=== PATIENT | female | born 2000 | race Caucasian/White ===

== ENCOUNTER 2022-11-24 10:00 | Outpatient (RCR) | payer MEDICARE, MEDICAID, SELFPAY ==
--- NOTE | 2022-09-29 13:05 | HP.PTEVAL_ITS ---
Patient's Visit Information YESENIA MEYERS is a 22 year old F referred to Physical Therapy by Dora Vidal DO with a diagnosis of SCOLIOSIS, ANKLE PAIN, WIDE STANCE. Date of Evaluation: 09/29/22 Physical Therapist: Nataly Escalona PT, Cert MDT - Visit Plan Frequency: 2x /Week Duration: 4-6 Weeks Plan: *CHECK AUTH: RECORD # OF VISITS APPROVED AND EXPIRATION DATE. CHECK CODES APPROVED WITH POC*. AQUATIC THERAPY FOR GAIT TRAINING, STAIR TRAINING, CORE STRENGTHEING AND LE STRETCHING. - Subjective Work/Leisure: PATIENT LIVES WITH HER MOM IN AN [employer]. DAYHAB AT [employer] 3 DAYS A WEEK X ABOUT 6 HRS A DAY. 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 Present symptoms: I WALK LIKE A DUCK. PATIENT DENIES ANY SIGNIFICANT PAIN. SHE REPORTS VERY OCCASSIONAL BACK PAIN AND DENIES LE PAIN INCLUDING ANKLE PAIN. R ANKLE GAVE OUT A FEW WEEKS AGO - DIDN'T FALL - HURT FOR A FEW DAYS BUT BACK TO NORMAL NOW. Present since: CHRONIC. Is it getting better, worse or staying the same: STAYING THE SAME OR GETTING WORSE. Previous history/Previous treatment: ANKLE BRACES WHEN YOUNGER. AQUATIC THERAPY. Gait: NO FALLS. Bowel or Bladder Dysfunction: NORMAL. Imaging: NO. OTHER: PATIENTS [facility] (home personal care provider hired by the [facility]) CUSTOMER ASSOCIATE ROMULO IS WITH PATIENT TODAY AND HELPFUL WITH PATIENTS HISTORY. Allyson helps Yesenia 15 hours a week with ADL and Community Activities and Medical cameron'ts. - Objective Sitting/Standing Posture: SCOLIOSIS. Active Correction of posture: NE. Other Observations: INDEP TRANSFERS. HANDS ON LEGS TO TRANSFER SIT TO STAND. FOLLOWS COMMANDS WELL. PLEASANT AND COOPERATIVE TO WORK WITH. INDEP GAIT WITHOUT ANY ASSISTIVE DEVICES AND NO LOB BUT EXTREME TOEING OUT AND SLOW CADANCE - SEE TUG TIME. NO ARM SWING - HOLDS HANDS AT ABDOMEN. Sensory deficit: MADINA LE LIGHT TOUCH SENSATION GROSSLY INTACT AND SYMMETRICAL. ROM deficit: TIGHT MADINA HIP EXTERNAL ROTATORS AND HIP FLEXORS. Motor deficit: MADINA LE STRENGTH GROSSLY 5/5 WITH MMT'ING. Dural Signs: NEGATIVE MADINA LE'S. Lumbar mvmt loss: flex - NIL. ext - MOD. R SG - MOD. L SG - MOD. Core strength: POOR. Palpation: NO ACUTE BACK TENDERNESS - Balance/Special Test Scores Lower Extremity Functional Score: 63 TUG Test Time Seconds: 20.94 30 Second Chair Rise Test Seconds: 8 - Goals Goal 1:: INDEP AND SAFE GAIT ON LEVEL SURFACES AND UP AND DOWN STEPS Goal Time Frame: 4-6 Weeks Goal 2:: INDEP HEP Goal Time Frame: 4-6 Weeks - Anticipated Interventions Patient/Client Instruction: Educate patient on: Condition, Plan of Care, Risk Factors For the Purpose of:: To improve self management Therapeutic Exercise to Include: Strength training, Balance training, Coordination, Postural training, Flexibilty training, Gait and locomotor training, Neuromotor development, In an aquatic setting, Dynamic Lumbar Stabilization For the Purpose of:: To increase ROM, To improve muscle performance and motor function, To increase tolerance to activity/condition/position, To improve ability of physical actions for home/community/work/leisure, To improve gait and locomotor functions Thank you for the opportunity to evaluate your patient. For Medicare and Medicare HMO plans, please review the plan of care and approve it. It will need to be FAXED BACK to us at [phone] for Medicare purposes. For Medicare only, by signing this I certify the plan of care. Please let me know if there are questions or concerns regarding this plan of care. Physician Signature: Date:
--- NOTE | 2022-10-07 08:43 | HP.OTEVAL_ITS ---
Patient's Visit Information YESENIA MEYERS is a 22 year old F, referred to Occupational Therapy by Dora Vidal DO, with a diagnosis of Scoliosis, ankle pain, wide stance. Date of Evaluation: 10/07/22 Occupational Therapist: Meredith Joyner, CASSI/Roxy, CHT - Subjective This 22 year old female was seen for OT pretty with dx of Scoliosis, ankle pain and wide stance. PATIENT LIVES WITH HER MOM IN AN [place] DAYHAB AT [facility] 3 DAYS A WEEK X ABOUT 6 HRS A DAY. 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 Present symptoms: I WALK LIKE A DUCK. AQUATIC THERAPY. Gait: NO FALLS. Bowel or Bladder Dysfunction: NORMAL. Imaging: NO. OTHER: PATIENTS [facility] (home personal care provider hired by the [facility]) SOLO TRUCK DRIVER KATLIN IS WITH PATIENT TODAY AND HELPFUL WITH PATIENTS HISTORY. Allyson helps Yesenia 15 hours a week with ADL and Community Activities and Medical cameron'ts. Katlin states she was told OT could get her ankle braces. - Rehabilitation General Assessment: This therapist pulled DPT Brenda Adams to consult on the ank le brace as caregiver indicated possible need. After discussion with DPT and her clinical knowledge the wide stance is more from hip rotation vs ankles. And pt can ambulate with toes forward with verbal cues. pt was able to walk with toes forward and stand with toes forward- it was recommended she cont with her PT to strengthen legs- and use visual foot cues on floor at work and verbal cues when walking. Pt was able to ambulate out of dept. 300 feet with toes forward. note was written for workshop to assist in giving pt cues visual and verbal and given to her caregiver Katlin. - Visit Plan General Plan: pt to continue with her scheduled PT sessions. No skilled OT services needed at this time. TEXT: Thank you for the opportunity to evaluate your patient. For Medicare and Medicare HMO plans, please review the plan of care and approve it. It will need to be FAXED BACK to us at [phone] for Medicare purposes. Please let me know if there are questions or concerns regarding this plan of care. Physician Signature: Date:
--- NOTE | 2022-11-24 10:39 | HP.PTDCSUM ---
It has been my pleasure to treat SILVIA MEYERS referred by Dora Vidal DO, with the diagnosis of SCOLIOSIS, ANKLE PAIN, WIDE STANCE for a total of 11 visit(s). Discharge Date: 11/24/22 Please see the following information for a summary of their discharge status. Subjective: PATIENT AND JOURNEYMAN WIREMAN REPORT SHE IS DOING A LOT BETTER. NO FALLS SINCE STARTING PT. PATIENT REPORTS HER BOWLING (SPECIAL OLYMPICS) HAS IMPROVED TOO. PATIENTS JOURNEYMAN WIREMAN IS A LAUNDRY OPERATOR AND THEY ARE GOING TO GO TO THE [facility] 2 TIMES A WEEK TO WORK ON SWIMMING AND WATER EX. ALSO DOING HEP. % Improvement: 70 Objective/Function: PATIENT WAS SEEN TODAY FOR RE-ASSESSMENT OF PROGRESS TOWARD THE SET PT GOALS AND THE NEED FOR FURTHER PHYSICAL THERAPY VS READINESS FOR DISCHARGE. PATIENT HAS IMPROVED SIGNIFICANTLY WITH PT AND IS APPROPRIATE FOR DISCHARGE TODAY. FURTHER INSTRUCTION GIVEN IN APPROPRIATE ARM SWIM TODAY WITH WALKING AND PATIENT DID REALLY WELL BUT WILL NEED TO WORK ON THIS WITH THE HELP OF HER CARE GIVEN WHO WAS PRESENT THROUGHOUT SESSION. JOURNEYMAN WIREMAN COMMUNICATES A GOOD UNDERSTANDING. UPON EXAM TODAY: INDEP TRANSFERS WITHOUT UE ASSIST. FOLLOWS COMMANDS WELL. PLEASANT AND COOPERATIVE TO WORK WITH. INDEP GAIT WITHOUT ANY ASSISTIVE DEVICES AND NO LOB BUT EXTREME TOEING OUT CONTINUES. CADANCE HAS IMPROVED - SEE TUG TIME. Sensory deficit: MADINA LE LIGHT TOUCH SENSATION GROSSLY INTACT AND SYMMETRICAL. ROM deficit: TIGHT MADINA HIP EXTERNAL ROTATORS AND HIP FLEXORS. Motor deficit: MADINA LE STRENGTH GROSSLY 5/5 WITH MMT'ING. Dural Signs: NEGATIVE MADINA LE'S. Lumbar mvmt loss: flex - NIL. ext - MOD. R SG - MIN. L SG - MIN. Core strength: POOR. Palpation: NO ACUTE BACK TENDERNESS. [ End ] Goal 1:: INDEP AND SAFE GAIT ON LEVEL SURFACES AND UP AND DOWN STEPS Goal Progress: Goal Met Goal 2:: INDEP HEP Goal Progress: Goal Met Plan: D/C. PATIENT AND JOURNEYMAN WIREMAN AGREEABLE. If there are questions or concerns regarding this patient's physical therapy, please feel free to call me at [phone]. Thank you for the referral of this patient. Sincerely, Nataly Escalona, PT, Cert MDT Balance/Gait/Functional tests - Balance/Special Test Scores Lower Extremity Functional Score: 64 TUG Test Time Seconds: 9.98 Tug Test: <10 sec.=free mobile 30 Second Chair Rise Test Seconds: 8
== END 2022-11-24 12:34 | disposition home or self-care (01) ==
LOC: PT 10:00
PROVIDERS: PCP Family Medicine; Referring Provider Family Medicine; Visit Provider Family Medicine
DX: M41.9 Scoliosis, unspecified (principal); M25.579 Pain in unspecified ankle and joints of unspecified foot
CPT/HCPCS: 97113; 97162; 97164; 97166

== ENCOUNTER → 2023-09-23 | Outpatient (CLI) | payer MEDICARE, MEDICAID, SELFPAY ==
[2023-09-23 12:05] LABS: Absolute Lymphocyte Count 3.17 X10^3/uL (0.83-4.51); Absolute Neutrophil Count 3.4 X10^3/uL (2.0-7.7); Basophil# 0.06 X10^3/uL; Basophil% 0.8 % (0-1); Eosinophil# 0.19 X10^3/uL; Eosinophils% 2.5 % (0-5); Hematocrit 44.3 % (37-47); Hemoglobin 14.3 g/dL (12.0-15.0); Lymphocyte # 3.17 X10^3/ul (0.83-4.51); Lymphocyte % 42.4 % (19-41); Mean Corp Hgb Conc 32.3 g/dL (32-36); Mean Corpuscular Hgb 29.7 pg (27.0-32.0); Mean Corpuscular Volume 92.1 fL (81-99); Mean Platelet Vol. 10.3 fl (6.2-12.0); Monocyte# 0.64 X10^3/uL; Monocyte% 8.6 % (0-10); NRBC Flagged by Analyzer 0 % (0-5); Neutrophil % 45.4 % (47-70); Platelet Count 288 K/mm3 (150-450); RBC Distribution Width CV 12.3 % (11.6-14.6); RBC Distribution Width SD 41.5 fl (35.1-43.9); Red Blood Count 4.81 M/mm3 (4.2-5.4); White Blood Count 7.5 K/mm3 (4.4-11.0)
[2023-09-23 12:22] LABS: AST(SGOT) 20 U/L (15-37); Alanine Aminotransfer ALT/SGPT 27 U/L (13-56); Albumin, Serum 3.9 g/dL (3.2-5.0); Alkaline Phosphatase 78 U/L (45-117); Anion Gap 5 (5-15); BUN 12 mg/dL (7-18); BUN/Creat Ratio 18.8 RATIO (10-20); Calcium,Total 9.3 mg/dL (8.5-10.1); Chloride 108 mmol/L (98-107); Creatinine, Serum 0.64 mg/dL (0.55-1.02); EST Glomerular Filtration Rate 123 mL/min (>60); Est Glom Filt Rate - Afr Amer 149 mL/min (>60); Glucose 95 mg/dL (74-106); Protein, Total 7.9 g/dL (6.4-8.2); Sodium Level 140 mmol/L (136-145); Thyroid Stim Hormone (TSH) 1.76 uIU/mL (0.358-3.74)
[2023-09-23 12:23] LABS: Vitamin D,25 Hydroxy 36.2 ng/mL
[2023-09-23 12:23] LABS: Cholesterol 177 mg/dL (200); High Density Lipoprotein 35 mg/dL; Triglycerides 195 mg/dL; Very Low Density Lipoprotein 39 mg/dL (5-40)
== END | disposition home or self-care (01) ==
LOC: MTLAB 10:27
PROVIDERS: PCP Family Medicine; Referring Provider Family Medicine; Visit Provider Family Medicine
DX: Z13.1 Encounter for screening for diabetes mellitus (principal); E66.01 Morbid (severe) obesity due to excess calories; Z68.41 Body mass index [BMI] 40.0-44.9, adult; Z91.09 Other allergy status, other than to drugs and biological substances
CPT/HCPCS: 36415; 80053; 80061; 82306; 82785; 84443; 85025; 86003

== ENCOUNTER → 2025-03-13 | Outpatient (CLI) | payer MEDICAID, MEDICARE, SELFPAY ==
[2025-03-13 15:28] LABS: Hematocrit 41.3 % (37-47); Hemoglobin 13.9 g/dL (12.0-15.0); Mean Corp Hgb Conc 33.7 g/dL (32-36); Mean Corpuscular Volume 92.2 fL (81-99); Mean Platelet Vol. 10.1 fl (6.2-12.0); Platelet Count 261 K/mm3 (150-450); RBC Distribution Width CV 12.3 % (11.6-14.6); RBC Distribution Width SD 41.5 fl (35.1-43.9); Red Blood Count 4.48 M/mm3 (4.2-5.4); White Blood Count 7.1 K/mm3 (4.4-11.0)
[2025-03-13 15:43] LABS: hCG Titer Quant., Serum < 1 mIU/mL (<9 non-preg)
[2025-03-13 16:19] LABS: AST(SGOT) 20 U/L (<=31); Alanine Aminotransfer ALT/SGPT 8 U/L (<=34); Albumin, Serum 4.4 g/dL (3.5-5.0); Alkaline Phosphatase 78 U/L (35-104); Anion Gap 13 (5-15); BUN 12 mg/dL (4-19); BUN/Creat Ratio 22.0 RATIO (10-20); Calcium,Total 9.5 mg/dL (7.6-11.0); Carbon Dioxide 22.3 mmol/L (21.0-32.0); Chloride 104 mmol/L (98-108); Globulin 3.0 g/dL (2.2-4.2); Glucose 78 mg/dL (70-99); Potassium 3.9 mmol/L (3.3-5.1)
== END | disposition home or self-care (01) ==
LOC: MTLAB 13:20
PROVIDERS: PCP Family Medicine; Referring Provider Family Medicine; Visit Provider Family Medicine
DX: R55 Syncope and collapse (principal)
CPT/HCPCS: 81001; 36415; 80053; 83036; 84443; 84702; 85027